=== PATIENT | female | born 1985 | race Caucasian/White ===

== ENCOUNTER 2020-03-06 18:31 | Emergency (ER) | payer OTHER, SELFPAY ==
[2020-03-06 18:39] VITALS: BP 100/66; PULSE 89; RESP 14; TEMP 36.4; O2SAT 99; BMI 16.8
--- NOTE | 2020-03-06 18:44 | W.ED.WOUNDLC ---
HPI - Wound/Laceration General: Chief Complaint: Wound/Laceration Stated Complaint: METAL VS R ELBOW Time Seen by Provider: 03/06/20 18:44 History of Present Illness: HPI narrative: Patient is a 34-year-old female comes the ED with injury to right elbow. Patient states she was working on putting trust and she fell back and her right elbow hit against a wall. She now has some bruising swelling and 2 small lacerations to the right elbow. Patient has full range of motion with a little bit of pain in the right elbow. Patient's last tetanus shot is unknown. Associated symptoms: Denies chills, fever(s), nausea or vomiting Review of Systems Const: Denies: fever(s), chills or fatigue Eyes: Denies: change in vision or eye discomfort ENMT: Denies: throat pain, odynophagia, nasal discharge or nasal congestion Card: Denies: chest pain, palpitations, edema, swelling of feet/ankles, dyspnea on exertion or orthopnea Resp: Denies: dyspnea, productive cough or non-productive cough GI: Denies: abdominal pain, nausea, vomiting, diarrhea, constipation or hematochezia : Denies: flank pain, dysuria or hematuria Musc: Reports: extremity pain (right elbow) and extremity swelling (right elbow); Denies: neck pain or back pain Skin/Breast: Reports: new lesions (2 small lacerations on right elbow); Denies: rash Neuro: Denies: headache(s), numbness in extremities or weakness in extremities PFS ED PFSH: Social History Smoking and tobacco status: never smoked Alcohol intake: current Physical Exam Const: COMMON NORMALS: no acute distress, patient oriented x3 and alert GENERAL APPEARANCE: cooperative and comfortable HENMT: THROAT: uvula midline Neck/C-Spine: COMMON NORMALS: supple GENERAL: Yes normal visual inspection Resp: COMMON NORMALS: normal respiratory effort, No retractions, No use of accessory muscles and clear to auscultation bilaterally AUSCULTATION: clear to auscultation bilaterally Cardio: COMMON NORMALS: regular rate, regular rhythm, S1 normal heart sound present, S2 normal heart sound present, No gallops present (Cardio), No clicks present (Cardio), No murmurs present (Cardio) and Peripheral pulses 2+ throughout RATE: regular rate RHYTHM: regular rhythm HEART SOUNDS: S1 normal heart sound present and S2 normal heart sound present PERIPHERAL PULSES: Peripheral pulses 2+ throughout Extremity: NARRATIVE EXTREMITY EXAM: Right elbow has ecchymosis and some swelling. Mild tenderness upon palpation. Neurovascular intact with radial pulse 2+. Patient had full range of motion with mild pain. GENERAL: Yes normal exam except as noted Neuro: COMMON NORMALS: patient oriented x3 and moves all extremities SENSORIUM/ORIENTATION: Yes alert Skin: GENERAL SKIN EXAM: ecchymosis (right elbow) TRAUMA: laceration (Patient has 2 small 0.5cm linear lacerations on right elbow.) linear, superficial, motor nerve function intact and sensation intact; not actively bleeding, no pulsatile bleeding, no foreign bodies present and not contaminated Procedures Laceration Laceration 1: Site: upper extremity (elbow) Side (If applicable): right Size (cm): 0.5 (2- small 0.5 lacerations on the elbow) Description: linear and clean Depth: simple, single layer Local Anesthetic: lidocaine 1% and with epi Amount of anesthesia used (mL): 10 Pre-repair: irrigated extensively (Irrigated extensively with normal saline and cleaned with alcohol swab.) Skin layer closed with: nylon Size (cm): 4-0 Number of sutures: 4 (3 sutures on one of the laceration and one suture on the other laceration) Technique: simple, interrupted Course Vital Signs: Vital signs: Vital Signs Temperature 97.5 F L 03/06/20 18:39 Pulse Rate 89 03/06/20 18:39 Respiratory Rate 14 03/06/20 18:39 Blood Pressure 100/66 03/06/20 18:39 Pulse Oximetry 99 03/06/20 18:39 MDM - Wound/Laceration MDM Narrative: Medical decision making narrative: 34-year-old female comes the ED with right elbow injury. She has 2 small linear lacerations of her right elbow with some ecchymosis and swelling as well. Full range of motion right elbow and neurovascular tact. X-ray right elbow shows no acute fractures or findings. This lacerations were irrigated extensively with normal saline and cleaned with alcohol swab. Closed using 4 (4-0) sutures and lidocaine with epi was used as local. Patient was given an updated tetanus shot while here in the ED. Patient tolerated procedure well. Patient was discharged and given instructions on suture care. Told to have sutures removed in 7 to 10 days at ED, urgent care or primary care physician's office. Return to ED precautions given. Patient understood and agreed with plan. Imaging Data^: Xray Ortho: Attestation: I personally reviewed and interpreted this imaging study as follows: My impression: Right elbow x-ray-no acute fractures or findings. Discharge Plan Discharge Patient Disposition: Home Clinical Impression: Laceration Traumatic ecchymosis of right elbow Qualifiers: Encounter type: initial encounter Qualified Code(s): S50.01XA - Contusion of right elbow, initial encounter Condition: Stable Prescriptions: No Action albuterol sulfate 90 mcg/actuation HFA aerosol inhaler 2 puff INHALATION Q4H PRN (Reason: shortness of breath or wheezing) Qty: 18 RF: 0 albuterol sulfate 1.25 mg/3 mL solution for nebulization 1.25 mg INHALATION QID PRN (Reason: shortness of breath or wheezing) Qty: 75 RF: 0 Flovent HFA 220 mcg/actuation HFA aerosol inhaler 1 puff INHALATION BID Qty: 12 RF: 0 Discharge Orders: Discharge Order (Routine); Ordered 03/06/20 Ordered By: Rodrigo Marcano Referrals: Leti Goldberg ADMISSIONS COORDINATOR [Primary Care Provider] - Discharge Diet: Regular Discharge Activity: Limit activity as instructed Patient Instructions: Laceration (ED) Activity Restrictions/Additional Instructions: Keep laceration site clean and dry for the next 48 hours. Then after that you can clean and re-bandage daily. Watch for signs of infection such as redness, warmth, increased tenderness and puslike drainage. If you see the signs of infection return to the ED, urgent care or PCP for reevaluation. Apply cold pack to help with swelling. call your PCP to schedule a follow-up appointment for reevaluation and suture removal in about 10 days. Follow discharge plans as discussed. You can return to the ED if symptoms worsen. Discharge Date/Time: 03/06/20 19:21 Coding Level of Care Code ED Senior Bi Architect for Magdalena Silva Exam Comprehensive
--- NOTE | 2020-03-06 18:48 | XRR_ITS ---
PROCEDURE INFORMATION: Exam: XR Right Elbow Exam date and time: 03/06/2020 6:49 PM Age: 34 years old Clinical indication: Pain; Right; Patient HX: Laceration to elbow; Additional info: Elbow injury TECHNIQUE: Imaging protocol: XR Right elbow. Views: 3 or more views. COMPARISON: No relevant prior studies available. FINDINGS: Bones/joints: Normal. Soft tissues: Normal. XR/XR elbow RT min 3V* [id number] IMPRESSION: No acute findings.
[2020-03-06] MEDS: tetanus-diphtheria tox (adult) 0.5 mL SDV IM (18:54)
== END 2020-03-06 19:21 | disposition home or self-care (01) ==
PROVIDERS: Emergency Provider Physician Assistant; PCP Nurse Practitioner Family
DX: S50.01XA Contusion of right elbow, initial encounter (principal); S51.011A Laceration without foreign body of right elbow, initial encounter; W22.09XA Striking against other stationary object, initial encounter; Z23 Encounter for immunization
CPT/HCPCS: 12001; 12345; 73080; 90471; 90714; 99281; 99283

== ENCOUNTER → 2020-11-03 08:46 | Outpatient (BNVA) | payer OTHER, SELFPAY | PROVIDERS: PCP Nurse Practitioner Family; Visit Provider Anesthesiology Pain Medicine | DX: M47.816 Spondylosis without myelopathy or radiculopathy, lumbar region (principal); M54.16 Radiculopathy, lumbar region; M54.9 Dorsalgia, unspecified; Z79.891 Long term (current) use of opiate analgesic | CPT/HCPCS: 99204 ==

== ENCOUNTER 2020-11-25 17:20 | Outpatient (CLI) | payer OTHER, SELFPAY ==
--- NOTE | 2020-11-25 17:30 | MR_ITS ---
WS: [id number] MRI LUMBAR SPINE NONCONTRAST HISTORY: M54.16 - Radiculopathy, lumbar region COMPARISON: None available. TECHNIQUE: Sagittal and axial multisequence imaging is submitted. Mild curvature lumbar spine. Posterior alignment is normal. No marrow edema or fracture. Disc spaces and vertebral body heights are well-preserved. Conus terminates normally at L1-2 disc level. L1-L2: Very tiny RIGHT paracentral disc protrusion. No stenosis. L2-L3: Normal. L3-L4: Small amount of fluid in the facet joints. No stenosis or disc protrusion. L4-L5: Normal. L5-S1: Very tiny central disc protrusion with no contact on the nerve roots. No significant stenosis. Paravertebral soft tissues are normal. MR/MR lumbar spine wo con* [id number] IMPRESSION: 1. No lumbar spine fractures. 2. Mild curvature lumbar spine with no significant stenosis or disc protrusion s.
== END 2020-11-25 17:21 | disposition home or self-care (01) ==
LOC: RADSHAW 17:25
PROVIDERS: PCP Nurse Practitioner Family; Visit Provider Anesthesiology Pain Medicine
DX: M54.16 Radiculopathy, lumbar region (principal)
CPT/HCPCS: 72148

== ENCOUNTER → 2020-11-29 09:04 | Outpatient (BNVA) | payer OTHER, SELFPAY | PROVIDERS: PCP Nurse Practitioner Family; Visit Provider Anesthesiology Pain Medicine | DX: M47.816 Spondylosis without myelopathy or radiculopathy, lumbar region (principal); M54.16 Radiculopathy, lumbar region; M54.9 Dorsalgia, unspecified; Z79.891 Long term (current) use of opiate analgesic | CPT/HCPCS: 99214 ==

== ENCOUNTER → 2021-03-18 13:01 | Outpatient (BNVA) | payer MEDICAID, SELFPAY | PROVIDERS: PCP Nurse Practitioner Family; Visit Provider Nurse Practitioner Women's Health | DX: N92.6 Irregular menstruation, unspecified (principal) | CPT/HCPCS: 81025 ==

== ENCOUNTER → 2021-04-01 11:42 | Outpatient (BNVA) | payer MEDICAID, SELFPAY | PROVIDERS: PCP Nurse Practitioner Family; Visit Provider Nurse Practitioner Women's Health | DX: Z34.80 Encounter for supervision of other normal pregnancy, unspecified trimester (principal) | CPT/HCPCS: 81000 ==

== ENCOUNTER → 2021-04-22 09:24 | Outpatient (BNVA) | payer MEDICAID, SELFPAY | PROVIDERS: PCP Nurse Practitioner Family; Visit Provider Obstetrics & Gynecology | DX: Z34.80 Encounter for supervision of other normal pregnancy, unspecified trimester (principal) | CPT/HCPCS: 80307; 81000; 84443; 85025; 86592; 86762; 86803; 86850; 86900; 87086; 87340; 87491; 87591; 87624 ==

== ENCOUNTER → 2021-07-08 13:55 | Outpatient (BNVA) | payer MEDICAID, SELFPAY | PROVIDERS: PCP Nurse Practitioner Family; Visit Provider Obstetrics & Gynecology | DX: Z34.80 Encounter for supervision of other normal pregnancy, unspecified trimester (principal) | CPT/HCPCS: 81000 ==

== ENCOUNTER → 2021-08-04 09:04 | Outpatient (BNVA) | payer MEDICAID, SELFPAY | PROVIDERS: PCP Nurse Practitioner Family; Visit Provider Obstetrics & Gynecology | DX: Z34.80 Encounter for supervision of other normal pregnancy, unspecified trimester (principal) | CPT/HCPCS: 81000; 82950; 84443; 85025 ==

== ENCOUNTER → 2021-08-18 11:32 | Outpatient (BNVA) | payer MEDICAID, SELFPAY | PROVIDERS: PCP Nurse Practitioner Family; Visit Provider Obstetrics & Gynecology | DX: Z34.80 Encounter for supervision of other normal pregnancy, unspecified trimester (principal) | CPT/HCPCS: 81000 ==

== ENCOUNTER → 2021-09-02 09:38 | Outpatient (BNVA) | payer MEDICAID, SELFPAY | PROVIDERS: PCP Nurse Practitioner Family; Visit Provider Obstetrics & Gynecology | DX: Z34.80 Encounter for supervision of other normal pregnancy, unspecified trimester (principal) | CPT/HCPCS: 81000 ==

== ENCOUNTER → 2021-09-16 13:24 | Outpatient (BNVA) | payer MEDICAID, SELFPAY | PROVIDERS: PCP Nurse Practitioner Family; Visit Provider Obstetrics & Gynecology | DX: Z34.80 Encounter for supervision of other normal pregnancy, unspecified trimester (principal) | CPT/HCPCS: 81000 ==

== ENCOUNTER → 2021-09-30 10:44 | Outpatient (BNVA) | payer MEDICAID, SELFPAY | PROVIDERS: PCP Nurse Practitioner Family; Visit Provider Obstetrics & Gynecology | DX: Z34.80 Encounter for supervision of other normal pregnancy, unspecified trimester (principal) | CPT/HCPCS: 84315; 87081 ==

== ENCOUNTER → 2021-10-07 09:39 | Outpatient (BNVA) | payer MEDICAID, SELFPAY | PROVIDERS: PCP Nurse Practitioner Family; Visit Provider Obstetrics & Gynecology | DX: Z34.90 Encounter for supervision of normal pregnancy, unspecified, unspecified trimester (principal) | CPT/HCPCS: 81000 ==

== ENCOUNTER → 2021-10-11 15:59 | Outpatient (BNVA) | payer MEDICAID, SELFPAY | PROVIDERS: PCP Nurse Practitioner Family; Visit Provider Obstetrics & Gynecology | DX: Z34.80 Encounter for supervision of other normal pregnancy, unspecified trimester (principal) | CPT/HCPCS: 81000 ==

== ENCOUNTER 2021-10-12 01:26 | Inpatient (IN) | payer MEDICAID, SELFPAY ==
[2021-10-12] VITALS (43 sets, daily range): BP systolic 94–144; BP diastolic 51–89; PULSE 65–121; RESP 15–17; TEMP 35.3–36.9; O2SAT 91–98; BMI 21.6
[2021-10-12 02:22] LABS: Basophils % 0.2 %; Eosinophils # 0.2 10^3/uL (0.0-0.8); Eosinophils % 2.1 %; Hematocrit 35.1 % (37.0-47.0); Hemoglobin 11.6 g/dL (11.5-15.3); Lymphocytes # 2.1 10^3/uL (0.8-4.8); Mean Corpuscular Hemoglobin 31.8 pg (28.0-34.0); Mean Corpuscular Volume 96.2 fl (81-99); Mean Platelet Volume 11.6 fL (7.4-10.4); Monocytes # 0.7 10^3/uL (0.2-0.9); Monocytes % 5.8 %; Neutrophils # 8.57 10^3/uL (1.8-7.7); Neutrophils % 73.6 %; Nucleated Red Blood Cells % 0 %; Platelet Count 180 10^3/cmm (130-400); Red Blood Count 3.65 10^6/uL (4.1-5.3); Red Cell Distribution Width 13.1 % (12.1-15.1); White Blood Count 11.6 10^3/uL (4.0-10.0)
[2021-10-12] MEDS: dextrose 5%-lactated ringers 1,000 ML 125 ML IV ×2 (02:30→14:57)
[2021-10-12] MEDS: fentaNYL 50 mcg/mL INJ 2mL IVP ×5 (02:32→16:19)
[2021-10-12 04:20] LABS: Nitrazine Paper, PH Positive
--- NOTE | 2021-10-12 05:52 | W.PM.OPSUD ---
Surgery/Procedure H&P Update DATE OF PROCEDURE: October 12, 2021 DATE H&P PERFORMED: 10/11/21 H&P UPDATE INFORMATION: I have reviewed H&P completed within last 30 days, I have examined patient prior to procedure and Changes to prior documentation as noted here (Cervix: 2/VX/70%/PROM)
[2021-10-12] MEDS: oxytocin 30 UNIT/500 ML BAG IV (12:03)
[2021-10-12] MEDS: lactated ringers 1,000 ML 999 ML IV (16:30)
[2021-10-12] MEDS: clindamycin 900 MG/50 ML PREMIX 100 MG IV (16:53)
[2021-10-12] MEDS: lidocaine 2% INJ 20 mL INJECTION (17:31)
--- NOTE | 2021-10-12 18:13 | PM.DELIVERY ---
Delivery Note: Date of delivery: October 12, 2021 Pre-delivery diagnoses: Term Premature rupture of membranes Post-delivery diagnoses: Same as above Procedure: Spontaneous vaginal delivery Estimated blood loss (mL): 300 Delivery: The patient was noted to be complete and pushing, so was placed in the dorsal lithotomy position, prepped and draped in the usual sterile fashion for a vaginal delivery. Pt. Noted to have epidural anesthesia. The patient delivered a 38 weeks term female infant weighing 2845g with scores of 8 and 9at one and five minutes, respectively. The vertex was delivered spontaneously over intact perineum. The patient was asked to push and the head delivered spontaneously in the FABIO position, over an intact perineum. A nuchal cord was checked and none noted. The anterior shoulder delivered easily and the posterior shoulder followed. The remainder of the was easily delivered and the oropharynx and nasopharynx was bulb suctioned. The infant was noted to have spontaneous cry and spontaneous movement of all four extremities. The cord was clamped x 2 and cut and noted to have 2 arteries and one vein. The was passed to the mother's abdomen where nursing personnel were in attendance. Cord blood sample was then obtained. The placenta delivered intact spontaneously and the uterus was explored. 20 units of Pitocin was placed in the IV bag to firm the uterus. Examination of the cervix and vaginal vault did not reveal any lacerations. A vaginal pack was then placed Examination of the perineum showed second-degree laceration. The laceration was repaired with 3-0 Vicryl in the normal fashion in a running non locking fashion to reapproximate the laceration in layers. The vaginal pack was then removed. The patient tolerated this procedure well, and recovered in L&D with her in their LDR room. All sponge and needle counts were correct. History History History 3 Term 1 Miscarriages/Ectopic 0 1 Living Children 2 A&P Assessment and plan (1) History of labor: Status: Acute (2) Term delivered: Status: Acute Coding Level of Care Code Acute Storeroom Supervisor for Chg Fwd Diagnoses History of labor Z87.51 Term delivered O80
[2021-10-12] MEDS: lanolin oint 7 gm 1 APPLIC TOPICAL (19:55)
[2021-10-12] MEDS: benzocaine-menthol 78 gm Canister 1 SPRAY TOPICAL (19:55)
[2021-10-12] MEDS: ibuprofen 800 mg tablet PO (21:00)
[2021-10-12] MEDS: HYDROcodone-acetaminophen 5-325 mg Tablet PO (22:39)
[2021-10-13 01:15] VITALS: BP 100/63; PULSE 87; TEMP 36.8; O2SAT 96
[2021-10-13 04:40] VITALS: BP 103/64; PULSE 82; TEMP 36.8; O2SAT 97
[2021-10-13 05:55] LABS: Hematocrit 30.6 % (37.0-47.0); Hemoglobin 10.1 g/dL (11.5-15.3); Mean Corpuscular Volume 96.8 fl (81-99); Mean Platelet Volume 11.1 fL (7.4-10.4); Platelet Count 170 10^3/cmm (130-400); Red Blood Count 3.16 10^6/uL (4.1-5.3); Red Cell Distribution Width 13.1 % (12.1-15.1); White Blood Count 17.3 10^3/uL (4.0-10.0)
[2021-10-13] MEDS: prenatal vitamin Capsule 1 CAP PO (09:08)
[2021-10-13] MEDS: ibuprofen 800 mg tablet PO ×2 (09:08→15:04)
[2021-10-13] MEDS: docusate sodium 100 mg Capsule PO (09:08)
[2021-10-13 10:30] VITALS: BP 100/51; PULSE 88; RESP 18; TEMP 36.7; O2SAT 98
--- NOTE | 2021-10-13 17:35 | PM.OBGYDC ---
Discharge Providers CLINICAL QUALITY ASSURANCE ASSOCIATE Date of Admission: 10/12/21 01:26 Date of Discharge: 10/13/21 Attending Provider at Admission: Chandan Erickson MD Attending Provider at Discharge: Chandan Erickson MD Primary CLINICAL QUALITY ASSURANCE ASSOCIATE: Dr. Daniel Primary Care Provider: SHONDA Rosas Diagnoses at Discharge Discharge Diagnosis (1) History of labor: Status: Acute (2) Term delivered: Status: Acute (3) Premature rupture of membranes: Status: Acute Reason for Visit Reason for Visit: possible ROM Hospital Course Hospital Course Chuy is a 36 year old G3, P1102 with a LMP of 01/19/2021 and DARSHAN of 10/26/2021 based on LMP and consistent with 10-week sonogram placing her at 38 weeks gestation when she came to labor and delivery complaining of rupture of membranes. Premature rupture of membranes was confirmed. She progressed to have a spontaneous vaginal delivery without complications. She delivered a female weighing 2845g with scores of 8 and 9. observation was uneventful. Tolerating diet well. Ambulating without difficulty. Refers she has not made up her mind which method of contraception she will use. Information Peripartum Data: Infant Delivery Method: Vaginal Physical Exam Narrative: GA; alert and oriented x 3 HEENT: normal Breasts: engorged Nipples - skin intact Lungs; clear to auscultation Heart: regular rhythm, no murmurs. Abd: Appropriately tender. BS+. Uterine fundus below umbilicus. No Fundal Tenderness. Perineum: normal lochia. Extremities: no edema, no cyanosis, no tenderness. History History History 3 Term 1 Miscarriages/Ectopic 0 1 Living Children 2 Discharge Data Studies Completed and Pending Laboratory Results WBC 17.3 10^3/uL (4.0-10.0) H 10/13/21 05:29 RBC 3.16 10^6/uL (4.1-5.3) L 10/13/21 05:29 Hgb 10.1 g/dL (11.5-15.3) L 10/13/21 05:29 Hct 30.6 % (37.0-47.0) L 10/13/21 05:29 MCV 96.8 fl (81-99) 10/13/21 05:29 MCH 32.0 pg (28.0-34.0) 10/13/21 05:29 MCHC 33.0 g/dL (30.0-36.0) 10/13/21 05:29 RDW 13.1 % (12.1-15.1) 10/13/21 05:29 Plt Count 170 10^3/cmm (130-400) 10/13/21 05:29 MPV 11.1 fL (7.4-10.4) H 10/13/21 05:29 Neut % (Auto) 73.6 % 10/12/21 01:13 Lymph % (Auto) 18.0 % 10/12/21 01:13 Ritchie % (Auto) 5.8 % 10/12/21 01:13 Eos % (Auto) 2.1 % 10/12/21 01:13 Baso % (Auto) 0.2 % 10/12/21 01:13 Neut # (Auto) 8.57 10^3/uL (1.8-7.7) H 10/12/21 01:13 Lymph # (Auto) 2.1 10^3/uL (0.8-4.8) 10/12/21 01:13 Ritchie # (Auto) 0.7 10^3/uL (0.2-0.9) 10/12/21 01:13 Eos # (Auto) 0.2 10^3/uL (0.0-0.8) 10/12/21 01:13 Baso # (Auto) 0.0 10^3/uL (0.0-0.1) 10/12/21 01:13 Nucleated RBC % (auto) 0 % 10/12/21 01:13 Nucleated RBCs # 0.0 /100WBC 10/12/21 01:13 Vitals Last Vital Signs Temp 98.0 F 10/13/21 10:30 Pulse 88 10/13/21 10:30 Resp 18 10/13/21 10:30 BP 100/51 10/13/21 10:30 Pulse Ox 98 10/13/21 10:30 Discharge Plan Discharge Patient Disposition: Home Condition: Stable Prescriptions: New ibuprofen 800 mg tablet 800 mg PO TID PRN (Reason: pain) Qty: 60 0RF acetaminophen 325 mg capsule 325 mg PO Q4H PRN (Reason: fever or pain) Qty: 60 0RF docusate sodium [Colace] 100 mg capsule 100 mg PO BID Qty: 60 0RF ferrous sulfate [Iron (ferrous sulfate)] 325 mg (65 mg iron) tablet 325 mg PO BID Qty: 60 0RF Continued Flovent HFA 220 mcg/actuation HFA aerosol inhaler 1 puff INHALATION BID PRN (Reason: Shortness Of Breath) 0RF cholecalciferol (vitamin D3) 1,250 mcg (50,000 unit) capsule 1,250 mcg PO .weekly 0RF Pulmicort Flexhaler 90 mcg/actuation aerosol powdr breath activated 1 inh inhalation BID PRN (Reason: Shortness Of Breath Or Wheezing) 0RF famotidine [Pepcid] 20 mg tablet 20 mg PO BID 0RF ferrous sulfate [Iron (ferrous sulfate)] 325 mg (65 mg iron) tablet 325 mg PO DAILY 0RF albuterol sulfate 90 mcg/actuation HFA aerosol inhaler 2 puff INHALATION Q4H PRN (Reason: shortness of breath or wheezing) Qty: 18 0RF Rx Instructions: Use when away from home in lieu of nebulized aluterol. albuterol sulfate 1.25 mg/3 mL solution for nebulization 1.25 mg INHALATION QID PRN (Reason: shortness of breath or wheezing) Qty: 75 0RF Rx Instructions: Use with nebulizer at home. valacyclovir [Valtrex] 500 mg tablet 500 mg PO DAILY 0RF DHA 200 mg capsule 200 mg PO DAILY 0RF fluoxetine [Prozac] 10 mg capsule 10 mg PO DAILY Qty: 30 6RF Label Comments: Patient reports on 10/12/21 that she has not started this prescription yet Discharge Orders: Discharge Order (Routine); Ordered 10/13/21 Ordered By: Chandan Erickson Referrals: Chandan Erickson MD [Physician] - 6 Weeks Discharge Diet: Usual diet Discharge Activity: Limit activity as instructed Patient Instructions: Depression (DC), Expression, Collection and Storage of Breast Milk (DC), Bleeding (DC), Preeclampsia and Eclampsia After Delivery (GEN), OB Discharge Report, OB Food/Drug Interaction Guide, OB Care at Home, Opioid Safety, OB Vaginal Deliveries - [facility] Activity Restrictions/Additional Instructions: 1. Please call [facility] on next working day to make your appointment in 6 weeks. 2. Please stay home until you come back to the clinic on first post-operative check up. 3. Please follow instructions on your medications CAREFULLY. 4. If you have abdominal incision, do not cover it unless dressing is necessary because of drainage. OK to shower, but avoid bath. Leave steri-strips until they fall off. If they are still on one week after surgery, you may remove them. 5. If you had vaginal surgery or vaginal repair, Dr. Erickson may instruct you to take SITZ bath. 6. Yellow, blood tinged odorous vaginal discharge is usually normal after hysterectomy or vaginal surgeries. 7. No sexual intercourse, tampons, or douches until you are completely released from the post-operative care. 8. Avoid constipation by eating right and maybe using some Metamucil or Milk of Magnesia. 9. All prescription refills are given during the working hours. Please do no wait till it runs out. Call the clinic at [phone] before your medication runs out. The clinic will get in touch with your doctor to prescribe medications if necessary. 10. Please remain within 40 mile radius from our hospital because emergencies do happen now and then during the post-operative period. 11. If you have stairs at home, take one step at a time slowly and minimize the number of trips. It helps to stay in one floor for the next few days. No lifting except what you can lift by one hand until you are released from the post-operative care. 12. Driving is discouraged until you are well healed. It may be 3-4 weeks before you feel strong enough to drive. You should be able to turn and look through the rear window without pain and you should be able to push the brake pedal very hard without pain before you drive. No fast rules, but SAFETY should be your primary concern. DO NOT drive if you are on sedating medications such as narcotics. 13. Call the clinic (during working hours) to make urgent appointment or go to the Emergency room, if any of the following occurs: i. Vaginal bleeding becomes heavy, more than a period. ii. Incision becomes red and sore, or drains pus. iii. Your temperature is over 100.4 or you have chill. iv. IV site becomes red and swollen (a little ``knot?? is usually OK) v. Persistent nausea and vomiting vi. Persistent constipation or diarrhea vii. Rash or allergic reaction to medications. Discharge Attestations CLINICAL QUALITY ASSURANCE ASSOCIATE Time Spent in Discharge Care*: greater than 30 min Coding Level of Care Code Acute Glass Installer Technician for Chg Fwd Diagnoses History of labor Z87.51 Term delivered O80 Premature rupture of membranes O42.90
[2021-10-13 18:38] VITALS: BP 110/65; PULSE 90; RESP 18; TEMP 36.6; O2SAT 96
== END 2021-10-13 19:05 | disposition home or self-care (01) | DRG 806 ==
LOC: OPOB 01:27 → OBGYN 01:27
PROVIDERS: Admitting Provider Obstetrics & Gynecology; PCP Nurse Practitioner Family; Visit Provider Obstetrics & Gynecology
DX: O75.89 Other specified complications of labor and delivery (principal); O98.32 Other infections with a predominantly sexual mode of transmission complicating childbirth; Z37.0 Single live birth; A60.00 Herpesviral infection of urogenital system, unspecified; A63.0 Anogenital (venereal) warts; O70.1 Second degree perineal laceration during delivery; Z3A.38 38 weeks gestation of pregnancy; J45.909 Unspecified asthma, uncomplicated
CPT/HCPCS: 36415; 59025; 59409; 83986; 85025; 85027; 96374; 96376; 99211; J3010; J3490

== ENCOUNTER → 2022-03-30 16:10 | Outpatient (BNVA) | payer MEDICAID, SELFPAY | PROVIDERS: PCP Nurse Practitioner Family; Visit Provider Obstetrics & Gynecology | DX: Z01.419 Encounter for gynecological examination (general) (routine) without abnormal findings (principal) | CPT/HCPCS: 87624 ==

== ENCOUNTER → 2022-06-02 13:05 | Outpatient (BNVA) | payer BC, MEDICAID, SELFPAY | PROVIDERS: PCP Clinical Nurse Specialist Adult Health; Visit Provider Obstetrics & Gynecology | DX: R87.619 Unspecified abnormal cytological findings in specimens from cervix uteri (principal) | CPT/HCPCS: 81025; 88305 ==

== ENCOUNTER → 2023-08-07 08:21 | Outpatient (BNVA) | payer OTHER, SELFPAY | PROVIDERS: PCP Clinical Nurse Specialist Adult Health; Visit Provider Nurse Practitioner Women's Health | DX: Z34.90 Encounter for supervision of normal pregnancy, unspecified, unspecified trimester | CPT/HCPCS: 80307; 81000; 81025; 85025; 86592; 86762; 86803; 86850; 86900; 87086; 87340; 87491; 87591; 87806 ==

== ENCOUNTER → 2023-08-13 13:32 | Outpatient (BNVA) | payer OTHER, SELFPAY | PROVIDERS: PCP Clinical Nurse Specialist Adult Health; Visit Provider Nurse Practitioner Women's Health | DX: Z36.87 Encounter for antenatal screening for uncertain dates (principal) | CPT/HCPCS: 76801 ==

== ENCOUNTER → 2023-08-23 07:43 | Outpatient (BNVA) | payer OTHER, SELFPAY | PROVIDERS: PCP Clinical Nurse Specialist Adult Health; Visit Provider Obstetrics & Gynecology | DX: Z34.90 Encounter for supervision of normal pregnancy, unspecified, unspecified trimester (principal) | CPT/HCPCS: 81000; 87491; 87591; 87624 ==

== ENCOUNTER → 2023-09-04 08:32 | Outpatient (BNVA) | payer OTHER, SELFPAY | PROVIDERS: PCP Clinical Nurse Specialist Adult Health; Visit Provider Nurse Practitioner Women's Health | DX: Z34.90 Encounter for supervision of normal pregnancy, unspecified, unspecified trimester | CPT/HCPCS: 82105; 84315 ==

== ENCOUNTER → 2023-09-26 09:24 | Outpatient (BNVA) | payer OTHER, SELFPAY | PROVIDERS: PCP Clinical Nurse Specialist Adult Health; Visit Provider Obstetrics & Gynecology | DX: Z34.80 Encounter for supervision of other normal pregnancy, unspecified trimester (principal) | CPT/HCPCS: 76805 ==

== ENCOUNTER → 2023-10-23 07:52 | Outpatient (BNVA) | payer OTHER, SELFPAY | PROVIDERS: PCP Clinical Nurse Specialist Adult Health; Visit Provider Nurse Practitioner Women's Health | DX: Z34.80 Encounter for supervision of other normal pregnancy, unspecified trimester (principal) | CPT/HCPCS: 82950; 84315 ==

== ENCOUNTER → 2023-11-19 08:15 | Outpatient (BNVA) | payer MEDICAID, SELFPAY | PROVIDERS: PCP Clinical Nurse Specialist Adult Health; Visit Provider Obstetrics & Gynecology | DX: Z34.80 Encounter for supervision of other normal pregnancy, unspecified trimester (principal) | CPT/HCPCS: 84315; 85025 ==

== ENCOUNTER → 2023-12-07 08:04 | Outpatient (BNVA) | payer MEDICAID, SELFPAY | PROVIDERS: PCP Clinical Nurse Specialist Adult Health; Visit Provider Obstetrics & Gynecology | DX: Z34.80 Encounter for supervision of other normal pregnancy, unspecified trimester (principal) | CPT/HCPCS: 81000 ==

== ENCOUNTER → 2023-12-19 08:00 | Outpatient (BNVA) | payer MEDICAID, SELFPAY | PROVIDERS: PCP Clinical Nurse Specialist Adult Health; Visit Provider Obstetrics & Gynecology | DX: Z34.00 Encounter for supervision of normal first pregnancy, unspecified trimester (principal) | CPT/HCPCS: 76816 ==

== ENCOUNTER → 2024-01-17 08:07 | Outpatient (BNVA) | payer MEDICAID, SELFPAY | PROVIDERS: PCP Clinical Nurse Specialist Adult Health; Visit Provider Obstetrics & Gynecology | DX: Z36.4 Encounter for antenatal screening for fetal growth retardation (principal); Z36.87 Encounter for antenatal screening for uncertain dates; O43.93 Unspecified placental disorder, third trimester; Z3A.35 35 weeks gestation of pregnancy | CPT/HCPCS: 76816; 76820; 84315; 87081 ==

== ENCOUNTER → 2024-01-24 11:25 | Outpatient (BNVA) | payer MEDICAID, SELFPAY | PROVIDERS: PCP Clinical Nurse Specialist Adult Health; Visit Provider Obstetrics & Gynecology | DX: Z34.80 Encounter for supervision of other normal pregnancy, unspecified trimester (principal) | CPT/HCPCS: 81000 ==

== ENCOUNTER 2024-02-05 18:48 | Inpatient (IN) | payer OTHER, MEDICAID, SELFPAY ==
[2024-02-05] VITALS (59 sets, daily range): BP systolic 110–148; BP diastolic 58–105; PULSE 59–97; TEMP 36.2–36.5; O2SAT 100; BMI 21.9
[2024-02-05 14:55] LABS: Basophils % 0.2 %; Eosinophils # 0.1 10^3/uL (0.0-0.8); Eosinophils % 0.6 %; Hematocrit 29.4 % (36-47); Lymphocytes # 1.2 10^3/uL (0.8-4.8); Lymphocytes % 11.9 %; Mean Corpuscular HGB Conc 32.7 g/dL (30-55); Mean Corpuscular Hemoglobin 29.1 pg (27-33); Mean Corpuscular Volume 89.1 fl (85-98); Monocytes # 0.5 10^3/uL (0.2-0.9); Monocytes % 4.4 %; Neutrophils % 82.5 %; Nucleated Red Blood Cells % 0 %; Platelet Count 179 10^3/cmm (157-399); Red Cell Distribution Width 13.5 % (12.1-15.1); White Blood Count 10.42 10^3/uL (3.29-11.43)
[2024-02-05] MEDS: lactated ringers 1,000 ML 999 ML IV ×2 (14:59→16:00)
[2024-02-05] MEDS: ROPivacaine syringe 100 MG/50 ML SYRINGE 10 MG EPIDURAL ×2 (16:16→19:34)
--- NOTE | 2024-02-05 16:29 | P.ANESASSM_ITS ---
Pre-Anesthetic Assessment Height/Weight: Height 5 ft 2 in Weight 120 lb Temp Pulse BP Pulse Ox O2 Del Method 97.2 F L 80 122/70 100 Room Air 02/05/24 13:27 02/05/24 16:25 02/05/24 16:25 02/05/24 16:10 02/05/24 13:49 Preop Diagnosis: requesting epidural Social No alcohol and No tobacco Exam alert, oriented x 3, clear to auscultation bilaterally and regular rate & rhythm Airway Submandibular: within normal limits Cervical ROM: within normal limits Mallampati: Class II Dentition: full Anesthetic Plan ASA status: 2 Anesthesia: Regional (specify below) Other: No prior issues with anesthesia 2 prior epidurals without issues Patient denies any issues during No cardiac or pulmonary issues Labs reviewed and acceptable for epidural placement Medications/Allergies Home Medications Medication Instructions Recorded Confirmed Last Taken Type albuterol sulfate 90 mcg/actuation 2 puff inhalation QID PRN 07/16/23 02/05/24 Unknown Rx aerosol inhaler (ProAir HFA) shortness of breath or wheezing 30 days #8.5 grams budesonide-formoterol HFA 160 1 puff inhalation BID #1 g 07/16/23 02/05/24 Unknown Rx mcg-4.5 mcg/actuation aerosol inhaler (Symbicort) docosahexaenoic acid 200 mg mg PO 07/16/23 02/05/24 Unknown History capsule ( DHA) fluoxetine 20 mg capsule 20 mg PO DAILY #90 caps 07/16/23 02/05/24 Unknown Rx valacyclovir 500 mg tablet 500 mg PO DAILY #90 tabs 12/20/23 02/05/24 Unknown Rx (Valtrex) Allergies Allergy/AdvReac Type Severity Reaction Status Date / Time Penicillins Allergy rash Verified 02/05/24 10:21 Sulfa (Sulfonamide Allergy rash Verified 02/05/24 10:21 Antibiotics) Current Medications Generic Name Dose Route Start Last Admin Trade Name Freq PRN Reason Stop Dose Admin Lactated Ringer's 1,000 mls @ 999 mls/hr 02/05/24 13:58 02/05/24 16:00 Lactated Ringers IV 999 mls/hr .Q1H1M PRN Administration See label comments Ropivacaine 100 mg in 50 mls @ 10 mls/hr 02/05/24 14:00 02/05/24 16:16 Naropin Syringe EPIDURAL 10 mls/hr .Q5H TANYA Administration PFSH Anesthesia Medical History Asthma Depression Genital herpes Allergic rhinitis due to allergen Vitamin D deficiency Surgical History History of hernia repair 2018 - right femoral hernia, [place], [place]. Dr. Jeremiah Castellon DO Family History Mother CAD (coronary artery disease) Hyperlipidemia Hypertension Denies family history of Diabetes Clotting disorder Dementia Psychiatric illness Chronic kidney disease (CKD) Suicide Anesthesia complication Bleeding disorder Lung disease Cancer Stroke Social History Smoking and tobacco/nicotine status: never used tobacco/nicotine Female Reproductive History : 4 Data Anesthesia 02/05/24 14:35 Short CBC 02/05/24 Range/Units 14:35 WBC 10.42 (3.29-11.43) 10^3/uL Hgb 9.60 L (11.27-16.99) g/dL Hct 29.4 L (36-47) % MCV 89.1 (85-98) fl Plt Count 179 (157-399) 10^3/cmm Neut % (Auto) 82.5 % Neut # (Auto) 8.60 H (1.8-7.7) 10^3/uL Blood Bank 02/05/24 14:35 Blood Type O Positive Rho(D) Type Rh positive Antibody Screen Negative Cardiac Studies: 2 No Data to Display
--- NOTE | 2024-02-05 16:30 | P.ANES_ITS ---
Anesthesia Procedures Procedure/Date: 02/05/24 Epidural: Time Out Performed: Yes Consents Signed: Procedure Consent Consent: requested by attending/covering physician and from patient Lumbar Level: L3-L4 Epidural position: sitting Epidural procedure: sterile prep of area, 1% lidocaine to numb the area, 18 g needle, negative for paresthesia p assed, neg for paresthesia, test dose given, 1.5% xylocaine 1:200k epi, 0.2% Ropivacaine bolus ml, sterile dressing applied, L.U.D. no apparent complications and 0.2% Ropiavacaine @ mls/hr (10 mL/h)
[2024-02-05] MEDS: dextrose 5%-lactated ringers 1,000 ML 125 ML IV (17:06)
[2024-02-05 17:32] LABS: Amphetamines Screen Urine Negative (Negative); Barbiturates Screen Urine Negative (Negative); Benzodiazepines Screen Urine Negative (Negative); Cocaine Screen Urine Negative (Negative); Opiate Screen Urine Negative (Negative); PCP Screen Urine Negative (Negative); THC Screen Urine Negative (Negative)
[2024-02-05] MEDS: oxytocin 30 UNIT/500 ML BAG IV (18:18)
[2024-02-05] MEDS: ondansetron 2 mg/ML SDV 2 mL 4 MG IVP (19:12)
[2024-02-05] MEDS: acetaminophen 325 mg Tablet 650 MG PO (19:12)
--- NOTE | 2024-02-05 19:25 | PM.OBGYHP ---
Providers/Chief Complaint Admitting Physician: Abdulaziz Terrell MD Primary PONY ROLL FINISHER: Chandan Erickson MD Primary Care Provider: Chuy Orly Lana Chief Complaint: Contractions HPI PONY ROLL FINISHER History of Present Illness patient was seen and admitted by me on February 05, 2024 at 1125 Chuy Osullivan is a 38 year old female EDC February 08, 2024 At 39 w 4 d No complications Was seen in clinic today Found to have cervix at 5 cm Now admitted for active labor No c/o Mild uterine contractions No bleeding or fluid leakage + active movements No perineal pain or lesions Has been taking Valtrex prophylactically PMHx: genital herpes Asthma Depression Present Details : 4 Para: 3 Labs Rubella: Immune RPR: Negative GBS: Negative Medications/Allergies Home Medications Medication Instructions Recorded Confirmed Last Taken Type albuterol sulfate 90 mcg/actuation 2 puff inhalation QID PRN 07/16/23 02/05/24 Unknown Rx aerosol inhaler (ProAir HFA) shortness of breath or wheezing 30 days #8.5 grams budesonide-formoterol HFA 160 1 puff inhalation BID #1 g 07/16/23 02/05/24 Unknown Rx mcg-4.5 mcg/actuation aerosol inhaler (Symbicort) docosahexaenoic acid 200 mg mg PO 07/16/23 02/05/24 Unknown History capsule ( DHA) fluoxetine 20 mg capsule 20 mg PO DAILY #90 caps 07/16/23 02/05/24 Unknown Rx valacyclovir 500 mg tablet 500 mg PO DAILY #90 tabs 12/20/23 02/05/24 Unknown Rx (Valtrex) Allergies Allergy/AdvReac Type Severity Reaction Status Date / Time Penicillins Allergy rash Verified 02/05/24 10:21 Sulfa (Sulfonamide Allergy rash Verified 02/05/24 10:21 Antibiotics) PFSH PONY ROLL FINISHER PFSH: Medical History Asthma Depression Genital herpes Allergic rhinitis due to allergen Vitamin D deficiency Surgical History History of hernia repair 2018 - right femoral hernia, [facility], [place], [place], [place]. Dr. Jeremiah Castellon DO Family History Mother CAD (coronary artery disease) Hyperlipidemia Hypertension Denies family history of Diabetes Clotting disorder Dementia Psychiatric illness Chronic kidney disease (CKD) Suicide Anesthesia complication Bleeding disorder Lung disease Cancer Stroke Social History Smoking and tobacco/nicotine status: never used tobacco/nicotine History History History 4 Term 2 1 Miscarriages/Ectopic 0 Living Children 3 Care DARSHAN Calculator Estimated Delivery Date Method Current WG Current Estimate 02/08/24 Ultrasound #1 39w 5d Other Estimates 02/08/24 LMP (Certain) 39w 5d Specific Issues/Plans HX DELIVERY AT 36 WEEKS (second ) ASTHMA GENITAL HERPES; on suppression in second trimester AMA Vitals/I&O/Wt Last Vital Signs Temp 98.3 F 02/06/24 03:00 Pulse 55 L 02/06/24 03:00 Resp 18 02/06/24 03:00 BP 125/78 02/06/24 03:00 Pulse Ox 100 02/05/24 16:10 O2 Del Method Room Air 02/05/24 13:49 02/05/24 02/05/24 02/06/24 14:59 22:59 06:59 Intake Total 1371.70 / 1371.70 Output Total 600 / 600 Balance 1371.70 / 1371.70 -600 / 771.70 Weight last 48 hrs Weight 120 lb Physical Exam Narrative: Weight 119 lbs; 5?2? VS normal General comfortable, awake, alert Lungs: clear Cor: RRR Abd: nontender Cervix: 5 cm / 75% / -2 / cephalic Ext: normal External monitor: heart tracing good variability, + accelerations Urinary Catheter Management: White: Cath Placed During This Visit: yes Reason for Continuing Indwelling Catheter: Required Immobilization for Trauma or Surgery or Anesthesia Urinary Catheter Date of Insertion: 02/05/24 Urinary Catheter Time of Insertion: 17:00 Data 02/05/24 14:35 Results Labs OB ([facility]): Obstetrics US 01/17/24 Blood Type O Positive 02/05/24 Antibody Screen Negative 02/05/24 Hct 29.4 % (36-47) L 02/05/24 Hgb 9.60 g/dL (11.27-16.99) L 02/05/24 Rho(D) Type Rh positive 02/05/24 Plt Count 179 10^3/cmm (157-399) 02/05/24 Hep Bs Antigen Non-reactive (Nonreactive) 08/07/23 Hepatitis C Antibody Non-reactive (Nonreactive) 08/07/23 Rubella IgG Antibody 189.3 IU/mL (0.0-10.0) H 08/07/23 RPR Nonreactive (Nonreactive) 08/07/23 HIV 1&2 Ab & HIV 1 Ag Non-reactive (Non-Reactiv) 08/07/23 TSH 1.02 uIU/mL (0.27-4.20) 08/04/21 C.trachomatis RNA (TMA) Not detected (NOT DETECTED) 08/23/23 N.gonorrhoeae RNA (TMA) Not detected (NOT DETECTED) 08/23/23 T. vaginalis Amp RNA Not detected (NOT DETECTED) 08/23/23 Chlamydia/GC Comment See note 08/23/23 Cystic Fibrosis Screen Negative 08/07/23 Glucose 1 Hr 50 gm 98 mg/dL (85-140) 10/23/23 Gest Glucose Tolerance 123 mg/dL 08/04/21 HCG, Qual Positive (Negative) H 08/07/23 Urine Opiates Screen Negative ng/mL (Negative) 02/05/24 Ur Barbiturates Screen Negative ng/mL (Negative) 02/05/24 Ur Phencyclidine Scrn Negative ng/mL (Negative) 02/05/24 Ur Amphetamines Screen Negative ng/mL (Negative) 02/05/24 U Benzodiazepines Scrn Negative ng/mL (Negative) 02/05/24 Urine Cocaine Screen Negative ng/mL (Negative) 02/05/24 U Marijuana (THC) Screen Negative ng/mL (Negative) 02/05/24 Micro Urine Specimen 08/07/23 Pap Smear Interpret See note A 08/23/23 A&P Assessment and plan (1) Active labor at term: 39 w 4 d Active labor Fetus reassuring Admit Expectant management Attestations Medical Necessity Statement*: Patient at 39 w 4 d with active labor Coding Level of Care Code Acute Code for Chg Fwd Diagnoses Active labor at term Time Spent (min) 30
--- NOTE | 2024-02-05 20:15 | PM.OBGYPN ---
FIRE PROTECTION FABRICATOR Subjective Subjective: Interval history: Fetus reassuring Comfortable with epidural Cervix: 6 cm / 90% / -1 AROM, blood-tinged clear fluid Labor: Station: +2 Amniotic Membrane Status: Ruptured Monitor Mode: External Contraction Pattern: Regular Vitals/I&O/Wt Last Vital Signs Temp 98.3 F 02/06/24 03:00 Pulse 55 L 02/06/24 03:00 Resp 18 02/06/24 03:00 BP 125/78 02/06/24 03:00 Pulse Ox 100 02/05/24 16:10 O2 Del Method Room Air 02/05/24 13:49 02/05/24 02/05/24 02/06/24 14:59 22:59 06:59 Intake Total 1371.70 / 1371.70 Output Total 600 / 600 Balance 1371.70 / 1371.70 -600 / 771.70 Weight last 48 hrs Weight 120 lb Physical Exam Urinary Catheter Management: White: Cath Placed During This Visit: yes Reason for Continuing Indwelling Catheter: Required Immobilization for Trauma or Surgery or Anesthesia Urinary Catheter Date of Insertion: 02/05/24 Urinary Catheter Time of Insertion: 17:00 Data 02/05/24 14:35 A&P Assessment and plan (1) Active labor at term: Attestations Medical Necessity Statement*: Patient at 39 w 4 d with active labor Coding Level of Care Code Acute Code for Chg Fwd Diagnoses Active labor at term Time Spent (min) 15
--- NOTE | 2024-02-05 22:20 | PM.DELIVERY ---
Delivery Note: Date of delivery: February 05, 2024 Pre-delivery diagnoses: 39 w 4 d active labor Post-delivery diagnoses: 39 w 4 d active labor labor augmentation vaginal delivery second-degree perineal laceration, repaired Procedure: labor augmentation vaginal delivery repair of second-degree perineal laceration Op report anesthesia: Epidural Delivering Physician: Abdulaziz Terrell MD Estimated blood loss (mL): 300 Findings: , vigorous female Normal placenta and cord Cord blood obtained No episiotomy Second-degree perineal laceration repaired EBL: 300 cc No complications Pre-Delivery Course: normal labor course Delivery: vaginal Post-Delivery Status: good History History History 4 Term 2 1 Miscarriages/Ectopic 0 Living Children 3 A&P Assessment and plan (1) Vaginal delivery: Coding Level of Care Code Acute Code for Chg Fwd Diagnoses Vaginal delivery O80 Time Spent (min) 60
[2024-02-05] MEDS: HYDROcodone-acetaminophen 5-325 mg Tablet PO (23:49)
[2024-02-06] VITALS (15 sets, daily range): BP systolic 96–154; BP diastolic 55–90; PULSE 55–85; RESP 16–18; TEMP 36.6–36.8; O2SAT 98–99
[2024-02-06] MEDS: benzocaine-menthol 78 gm Canister 1 SPRAY TOPICAL (02:45)
[2024-02-06] MEDS: lanolin oint 7 gm 1 APPLIC TOPICAL (02:45)
[2024-02-06] MEDS: HYDROcodone-acetaminophen 5-325 mg Tablet PO ×2 (06:09→11:59)
[2024-02-06] MEDS: ibuprofen 800 mg tablet PO ×3 (09:36→20:26)
[2024-02-06] MEDS: PRENATAL VIT NO.130/IRON/FOLIC 1 EACH TABLET PO (09:36)
[2024-02-06] MEDS: docusate sodium 100 mg Capsule PO ×2 (09:36→20:26)
[2024-02-06 10:16] LABS: Hematocrit 29.3 % (36-47); Mean Corpuscular HGB Conc 31.7 g/dL (30-55); Mean Corpuscular Hemoglobin 28.8 pg (27-33); Mean Corpuscular Volume 90.7 fl (85-98); Mean Platelet Volume 12.2 fL (7.4-10.4); Platelet Count 153 10^3/cmm (157-399); Red Blood Count 3.23 10^6/uL (3.85-5.65); Red Cell Distribution Width 13.6 % (12.1-15.1); White Blood Count 15.68 10^3/uL (3.29-11.43)
--- NOTE | 2024-02-06 13:05 | P.PN_ITS ---
CIRCULAR SAWYER HELPER Subjective 2 Subjective: Interval history: no c/o no headaches, dizziness, nausea, abdominal pain, bleeding normal lochia mild perineal pain, relieved with pain meds eating, voiding, ambulating well Labor: Station: +2 Amniotic Membrane Status: Ruptured Monitor Mode: External Contraction Pattern: Regular Vitals/I&O/Wt Last Vital Signs Temp 97.7 F 02/07/24 10:30 Pulse 67 02/07/24 10:30 Resp 16 02/07/24 04:45 BP 123/78 02/07/24 10:30 Pulse Ox 98 02/07/24 04:45 O2 Del Method Room Air 02/07/24 10:30 Physical Exam 2 Narrative: afebrile, VS normal comfortable, awake, alert Abd: soft, nontender. fundus firm Ext: no edema; nontender Urinary Catheter Management: White: Cath Placed During This Visit: yes, but has since been removed by the nurse Reason for Continuing Indwelling Catheter: Decision to DC Catheter Urinary Catheter Date of Insertion: 02/05/24 Urinary Catheter Time of Insertion: 17:00 Date Urinary Catheter Removed: 02/05/24 Time Urinary Catheter Discontinued: 22:10 Data 02/06/24 10:09 A&P Assessment and plan (1) Vaginal delivery: PPD #1 doing well normal course continue care Attestations 2 Medical Necessity Statement*: patient s/p vaginal delivery Coding Level of Care Code Acute Code for Chg Fwd Diagnoses Vaginal delivery O80 Time Spent (min) 20
--- NOTE | 2024-02-06 17:18 | ANE.PACU2 ---
Inpatient post-anesthesia follow up: Airway intact: Yes Vital signs: Temperature 97.7 F Pulse Rate 67 Respiratory Rate 16 Blood Pressure 123/78 Pulse Oximetry 98 Oxygen Delivery Me thod Room Air Oxygen Flow Rate Fraction of Inspir ed Oxygen Hydration adequate: Yes Nausea and vomiting: No Pain level: 1 Mental status: Baseline
[2024-02-07 04:45] VITALS: BP 136/79; PULSE 70; RESP 16; TEMP 36.9; O2SAT 98
[2024-02-07] MEDS: ibuprofen 800 mg tablet PO (08:58)
[2024-02-07] MEDS: docusate sodium 100 mg Capsule PO (08:58)
[2024-02-07] MEDS: PRENATAL VIT NO.130/IRON/FOLIC 1 EACH TABLET PO (08:58)
[2024-02-07 10:30] VITALS: BP 123/78; PULSE 67; TEMP 36.5
--- NOTE | 2024-02-07 12:10 | P.PN_ITS ---
STUDIO TECHNICIAN Subjective 2 Subjective: Interval history: no c/o no bleeding, pain eating, voiding, ambulating well caring for without any problems Labor: Station: +2 Amniotic Membrane Status: Ruptured Monitor Mode: External Contraction Pattern: Regular Vitals/I&O/Wt Last Vital Signs Temp 97.7 F 02/07/24 10:30 Pulse 67 02/07/24 10:30 Resp 16 02/07/24 04:45 BP 123/78 02/07/24 10:30 Pulse Ox 98 02/07/24 04:45 O2 Del Method Room Air 02/07/24 10:30 Physical Exam 2 Narrative: afebrile, VS normal comfortable, awake, alert Abd: soft, nontender. fundus firm Ext: no edema; nontender Urinary Catheter Management: White: Cath Placed During This Visit: yes, but has since been removed by the nurse Reason for Continuing Indwelling Catheter: Decision to DC Catheter Urinary Catheter Date of Insertion: 02/05/24 Urinary Catheter Time of Insertion: 17:00 Date Urinary Catheter Removed: 02/05/24 Time Urinary Catheter Discontinued: 22:10 Data 02/06/24 10:09 A&P Assessment and plan (1) Vaginal delivery: PPD #2 doing well discharge to home today instructions and precautions given call/return if fever, chills, headache, blurry vision, nausea, vomiting, abdominal pain; vaginal bleeding or discharge; shortness of breath, chest pain, leg pains or swelling; inability to void, perineal pain or swelling; feelings of depression or mood changes; thoughts of suicide or harming others; inability to care for baby. f/u in 6 weeks or PRN Attestations 2 Medical Necessity Statement*: patient s/p vaginal delivery, plan to discharge to home today Coding Level of Care Code Acute Code for Chg Fwd Diagnoses Vaginal delivery O80 Time Spent (min) 20
--- NOTE | 2024-02-07 12:30 | PM.OBGYDC ---
Discharge Providers EXPORT ADMINISTRATOR Date of Admission: 02/05/24 18:48 Date of Discharge: 02/07/24 Attending Provider at Admission: Abdulaziz Terrell MD Attending Provider at Discharge: Adbulaziz Terrell MD Consults: none Primary EXPORT ADMINISTRATOR: Chandan Erickson MD Primary Care Provider: Chuy Schwatrz Diagnoses at Discharge Discharge Diagnosis (1) Vaginal delivery: Details from hospital stay: 38 y.o. with no complications admitted at 39 w 4 d with painful uterine contractions, active labor fetus reassuring throughout patient delivered vaginally with repair of second-degree perineal laceration without any complications patient did well and was discharged to home on the second day Status: Acute Reason for Visit Reason for Visit: Contractions Brief History: 38 y.o. with no complications admitted at 39 w 4 d with painful uterine contractions, active labor Hospital Course Hospital Course 38 y.o. with no complications admitted at 39 w 4 d with painful uterine contractions, active labor fetus reassuring throughout patient delivered vaginally with repair of second-degree perineal laceration without any complications patient did well and was discharged to home on the second day Information Peripartum Data: Delivery Method: Vaginal Laceration description: Perineal - 2nd Degree Episiotomy description: None complications: none Physical Exam Narrative: afebrile, VS normal comfortable, awake, alert Abd: soft, nontender. fundus firm Ext: no edema; nontender Urinary Catheter Management: White: Cath Placed During This Visit: yes, but has since been removed by the nurse Reason for Continuing Indwelling Catheter: Decision to DC Catheter Urinary Catheter Date of Insertion: 02/05/24 Urinary Catheter Time of Insertion: 17:00 Date Urinary Catheter Removed: 02/05/24 Time Urinary Catheter Discontinued: 22:10 History History History 4 Term 2 1 Miscarriages/Ectopic 0 Living Children 3 Discharge Data Studies Completed and Pending Laboratory Results WBC 15.68 10^3/uL (3.29-11.43) H 02/06/24 10:09 RBC 3.23 10^6/uL (3.85-5.65) L 02/06/24 10:09 Hgb 9.30 g/dL (11.27-16.99) L 02/06/24 10:09 Hct 29.3 % (36-47) L 02/06/24 10:09 MCV 90.7 fl (85-98) 02/06/24 10:09 MCH 28.8 pg (27-33) 02/06/24 10:09 MCHC 31.7 g/dL (30-55) 02/06/24 10:09 RDW 13.6 % (12.1-15.1) 02/06/24 10:09 Plt Count 153 10^3/cmm (157-399) L 02/06/24 10:09 MPV 12.2 fL (7.4-10.4) H 02/06/24 10:09 Neut % (Auto) 82.5 % 02/05/24 14:35 Lymph % (Auto) 11.9 % 02/05/24 14:35 [place] % (Auto) 4.4 % 02/05/24 14:35 Eos % (Auto) 0.6 % 02/05/24 14:35 Baso % (Auto) 0.2 % 02/05/24 14:35 Neut # (Auto) 8.60 10^3/uL (1.8-7.7) H 02/05/24 14:35 Lymph # (Auto) 1.2 10^3/uL (0.8-4.8) 02/05/24 14:35 [place] # (Auto) 0.5 10^3/uL (0.2-0.9) 02/05/24 14:35 Eos # (Auto) 0.1 10^3/uL (0.0-0.8) 02/05/24 14:35 Baso # (Auto) 0.0 10^3/uL (0.0-0.1) 02/05/24 14:35 Nucleated RBC % (auto) 0 % 02/05/24 14:35 Nucleated RBCs # 0.0 /100WBC 02/05/24 14:35 Urine Opiates Screen Negative ng/mL (Negative) 02/05/24 17:08 Ur Barbiturates Screen Negative ng/mL (Negative) 02/05/24 17:08 Ur Phencyclidine Scrn Negative ng/mL (Negative) 02/05/24 17:08 Ur Amphetamines Screen Negative ng/mL (Negative) 02/05/24 17:08 U Benzodiazepines Scrn Negative ng/mL (Negative) 02/05/24 17:08 Urine Cocaine Screen Negative ng/mL (Negative) 02/05/24 17:08 U Marijuana (THC) Screen Negative ng/mL (Negative) 02/05/24 17:08 Blood Type O Positive 02/05/24 14:35 Rho(D) Type Rh positive 02/05/24 14:35 Antibody Screen Negative 02/05/24 14:35 Procedures Performed vaginal delivery repair of second-degree perineal laceration Vitals Last Vital Signs Temp 97.7 F 02/07/24 10:30 Pulse 67 02/07/24 10:30 Resp 16 02/07/24 04:45 BP 123/78 02/07/24 10:30 Pulse Ox 98 02/07/24 04:45 O2 Del Method Room Air 02/07/24 10:30 Results Labs OB ([facility]): Obstetrics US 01/17/24 Blood Type O Positive 02/05/24 Antibody Screen Negative 02/05/24 Hct 29.3 % (36-47) L 02/06/24 Hgb 9.30 g/dL (11.27-16.99) L 02/06/24 Rho(D) Type Rh positive 02/05/24 Plt Count 153 10^3/cmm (157-399) L 02/06/24 Hep Bs Antigen Non-reactive (Nonreactive) 08/07/23 Hepatitis C Antibody Non-reactive (Nonreactive) 08/07/23 Rubella IgG Antibody 189.3 IU/mL (0.0-10.0) H 08/07/23 RPR Nonreactive (Nonreactive) 08/07/23 HIV 1&2 Ab & HIV 1 Ag Non-reactive (Non-Reactiv) 08/07/23 TSH 1.02 uIU/mL (0.27-4.20) 08/04/21 C.trachomatis RNA (TMA) Not detected (NOT DETECTED) 08/23/23 N.gonorrhoeae RNA (TMA) Not detected (NOT DETECTED) 08/23/23 T. vaginalis Amp RNA Not detected (NOT DETECTED) 08/23/23 Chlamydia/GC Comment See note 08/23/23 Cystic Fibrosis Screen Negative 08/07/23 Glucose 1 Hr 50 gm 98 mg/dL (85-140) 10/23/23 Gest Glucose Tolerance 123 mg/dL 08/04/21 HCG, Qual Positive (Negative) H 08/07/23 Urine Opiates Screen Negative ng/mL (Negative) 02/05/24 Ur Barbiturates Screen Negative ng/mL (Negative) 02/05/24 Ur Phencyclidine Scrn Negative ng/mL (Negative) 02/05/24 Ur Amphetamines Screen Negative ng/mL (Negative) 02/05/24 U Benzodiazepines Scrn Negative ng/mL (Negative) 02/05/24 Urine Cocaine Screen Negative ng/mL (Negative) 02/05/24 U Marijuana (THC) Screen Negative ng/mL (Negative) 02/05/24 Micro Urine Specimen 08/07/23 Pap Smear Interpret See note A 08/23/23 Discharge Plan Discharge Patient Disposition: Home Condition: Stable Prescriptions: Continued DHA 200 mg capsule PO albuterol sulfate [ProAir HFA] 90 mcg/actuation HFA aerosol inhaler 2 puff inhalation QID PRN (Reason: shortness of breath or wheezing) 30 Days Qty: 8.5 11RF budesonide-formoterol [Symbicort] 160-4.5 mcg/actuation HFA aerosol inhaler 1 puff inhalation BID Qty: 1 11RF fluoxetine 20 mg capsule 20 mg PO DAILY Qty: 90 3RF Patient Comments: Patient reports on 10/12/21 that she has not started this prescription yet valacyclovir [Valtrex] 500 mg tablet 500 mg PO DAILY Qty: 90 3RF Discharge Orders: Discharge Order (Routine); Ordered 02/07/24 Ordered By: Abdulaziz Terrell Referrals: Chandan Erickson MD [Physician] - 6 Weeks (6 week post op appointment with Dr. Erickson is scheduled on 03/21/24 @10:45. ) Discharge Diet: Usual diet Discharge Activity: Increase activity as tolerated Patient Instructions: Depression (DC), Opioid Safety (DC), Preeclampsia and Eclampsia After Delivery (GEN), Hemorrhage (DC), OB Discharge Report, OB Food/Drug Interaction Guide, Opioid Safety, OB Home Care, OB Vaginal Deliveries - [facility], Abnormal Bleeding Discharge Attestations EXPORT ADMINISTRATOR Time Spent in Discharge Care*: less than 30 min Coding Level of Care Code Acute Code for Chg Fwd Diagnoses Vaginal delivery O80 Time Spent (min) 20
--- NOTE | 2024-02-08 17:18 | ANE.PACU2 ---
Inpatient post-anesthesia follow up: Vital signs: Temperature 97.7 F Pulse Rate 67 Respiratory Rate 16 Blood Pressure 123/78 Pulse Oximetry 98 Oxygen Delivery Me thod Room Air Oxygen Flow Rate Fraction of Inspir ed Oxygen Epidural Start/End: Epidural Start Date: 02/05/24 Epidural Start Time: 16:00 Epidural End Date: 02/06/24 Epidural End Time: 02:52
== END 2024-02-07 11:25 | disposition home or self-care (01) | DRG 807 ==
LOC: OPOB 18:49 → OBGYN 18:49
PROVIDERS: Admitting Provider Obstetrics & Gynecology; PCP Clinical Nurse Specialist Adult Health; Visit Provider Obstetrics & Gynecology
DX: O70.1 Second degree perineal laceration during delivery (principal); Z37.0 Single live birth; Z3A.39 39 weeks gestation of pregnancy
CPT/HCPCS: 36415; 51702; 59025; 59409; 80306; 81000; 85025; 85027; 86850; 86900; 96374; 99211; J2405; J2590; J2795; J7120; J7121

== ENCOUNTER → 2024-03-27 13:41 | Outpatient (BNVA) | payer OTHER, MEDICAID, SELFPAY | PROVIDERS: PCP Clinical Nurse Specialist Adult Health; Visit Provider Obstetrics & Gynecology | DX: R87.619 Unspecified abnormal cytological findings in specimens from cervix uteri (principal) | CPT/HCPCS: 81025; 88305 ==

== ENCOUNTER → 2024-04-04 11:10 | Outpatient (BNVA) | payer OTHER, MEDICAID, SELFPAY | PROVIDERS: PCP Clinical Nurse Specialist Adult Health; Visit Provider Obstetrics & Gynecology | DX: R87.619 Unspecified abnormal cytological findings in specimens from cervix uteri (principal) | CPT/HCPCS: 88305 ==

== ENCOUNTER → 2024-10-27 08:15 | Outpatient (BNVA) | payer MEDICAID, SELFPAY | PROVIDERS: PCP Clinical Nurse Specialist Adult Health; Visit Provider Clinical Nurse Specialist Adult Health | DX: J45.909 Unspecified asthma, uncomplicated (principal); F32.A Depression, unspecified; A60.04 Herpesviral vulvovaginitis; R53.83 Other fatigue | CPT/HCPCS: 80053; 82306; 82728; 83550; 84439; 84443; 85025 ==